=== PATIENT | female | born 1990 | race Hispanic/Latino ===

== ENCOUNTER 2017-03-10 03:28 | Inpatient (IN) | payer OTHER ==
[~2017-03-10] VITALS: Ht 160 cm; Wt 119.3 kg
[~2017-03-10 03:28] MED LIST: Ibuprofen PO
[2017-03-10] MEDS ORDERED: Lactated Ringer's 1,000 ML IV PRN (06:07)
[2017-03-10] MEDS ORDERED: Sodium Chloride LOK Flush 10 mL Syringe IVFLUSH PRN (06:10)
[2017-03-10] MEDS ORDERED: Oxytocin 30 Units/500 mL LR 30 UNITS in IV Premix 1 EACH IV PRN ×2 (06:10→09:15)
[2017-03-10] MEDS ORDERED: Oxytocin 10 Unit/mL Inj IM PRN ×2 (06:10→09:15)
[2017-03-10] MEDS ORDERED: Carboprost 250 mCg/mL Inj IM PRN ×2 (06:10→09:15)
[2017-03-10] MEDS ORDERED: Hemorrhage Kit, Post Partum XX ONE ×2 (06:10→09:15)
[2017-03-10] MEDS ORDERED: Methylergonovine 0.2 mg/mL Inj IM PRN ×2 (06:10→09:15)
[2017-03-10] MEDS ORDERED: Ondansetron 2 mg/mL 2 mL Inj IVPUSH PRN ×2 (06:10→06:30)
[2017-03-10] MEDS ORDERED: fentaNYL 2 mCg/mL-Bupivicaine 0.125% 100 mL Premix EPIDURAL ONE (06:12)
[2017-03-10 06:20] LABS: Mean Corpuscular Hemoglobin 28.6 pg (27.0-35.0); Mean Corpuscular Volume 86.9 fL (81-100)
--- NOTE | 2017-03-10 06:28 | PCM.HPANE ---
Patient Data Date of Service: Mar 10, 2017 (0612) Surgeon Admitting Provider:Mike Tabor MD Attending Provider:Mike Tabor MD Primary Care Physician:Hilda Mcgraw MD Other Provider:Fran Brownlee Anesthesia Reason for Visit TERM TERM Ht/WT & BMI Body Mass Index Allergies Coded Allergies: No Known Allergies (Verified , 12/15/06) Past Anesthesia History Anesthesia History: Denies:: Abnormal Airway, Anesthesia Reactions, Difficult Intubation, Fam Anesthesia Reaction, Fam Malignant Hypertherm, Malignant Hyperthermia Medications Active Scripts [Ibuprofen] (Motrin)800 MG TABLET No Conflict [id number] Mg PO Q6H PRN For Pain # 30 TABLET Ref 1 Prov:Giuseppe Stephenson MD 01/18/15 History History of ENT Problems?: No HEENT History: Denies:: Abnormal Airway Cataracts Difficult Intubation Dysphagia Glaucoma Hearing Problem Sinus Problem TMJ Denture Type: None Teeth Condition: Within Normal Limits Hx of Heart Problems?: No Cardiovascular History: Denies:: AICD Abdominal Aortic Aneurism Atrial Fibrillation Cardiac Surgery Chest Pain Congestive Heart Failure Coronary Artery Disease Edema Heart Murmur Hypertension Irregular Heartbeat Pacemaker Peripheral Vascular Rheumatic Fever Thrombophlebitis Valvular Heart Disease Hx of Respiratory Problem?: No Respiratory History: Denies:: Asthma COPD Chest Surgery Cough Dyspnea Emphysema Hemoptysis Oxygen Administration Pneumonia Pulmonary Embolism Tuberculosis Use of C-PAP Machine Use of Inhalers / NEBS Hx Neurologic Problems?: No Hx of GI Problems?: No Hx of Problems?: No Female Hx: Positive for:: Currently Hx Musculoskeletal Problems?: No Hx Surgeries?: Yes Smoking Status: Never Smoker Stop/Bang Risk Assessment Category Category 1A: Patient has history of documented sleep apnea, and HAS NOT received any narcotic, sedative or anesthesia administration during this stay. Category 1B: Patient has history of documented sleep apnea, and HAS received any narcotic , sedative or anesthesia administration during this stay Category 2: Patient has SUSPECTED Obstructive Sleep Apnea, and HAS received any narcotic , sedative or anesthesia administration during this stay. Category 3: Patient has SUSPECTED Obstructive Sleep Apnea and HAS NOT received narcotic, sedative or anesthesia administration during this stay. Category 4: Outpatient in Procedural Areas with known sleep apnea or who screen positive for High Risk via the STOP/BANG questionnaire. Exam Exam General Appearance: Alert, Oriented X3, Cooperative, No Acute Distress HEENT/AIRWAY: MP 2, Neck Movement (from) Lungs: Clear to Auscultation Heart: Exam Unremarkable Meds/Labs/Diagnostics Labs Test 03/10/17 04:16 Blood Urea Nitrogen 5mg/dL (6-20) Creatinine 0.36mg/dL (0.57-1.00) Uric Acid 4.3mg/dL (2.6-7.2) Aspartate Amino Transf (AST/SGOT) 19U/L (0-50) Alanine Aminotransferase (ALT/SGPT) 13U/L (0-32) Plan Impression Patient chart reviewed, patient interviewed and anesthestic plan with risks, benefits, and alternatives discussed, and informed consent obtained. ASA Physical Status: ASA3 Severe Disease Anesthetic Plan: Epidural Bene/Risks/Altern/Consents: Yes HP Complete Prior to Induction: Yes Andrea Hutchinson MD Mar 10, 2017 06:28
[2017-03-10] MEDS ORDERED: Lactated Ringer's 500 ML IV ONE (06:29)
[2017-03-10] MEDS ORDERED: Lactated Ringer's 1,000 ML IV SCH ×2 (06:29→09:11)
[2017-03-10] MEDS ORDERED: Atropine 1 mg/10 mL (Code) Syringe IVPUSH PRN (06:30)
[2017-03-10] MEDS ORDERED: EPHEDrine Sulfate 50 mg/mL Inj IVPUSH PRN (06:30)
[2017-03-10] MEDS ORDERED: fentaNYL 2 mCg/mL-Bupiv 0.125% 100 ML EPIDURAL SCH (06:30)
[2017-03-10] MEDS ORDERED: Penicillin G K Inj 5,000,000 UNITS in Dextrose 5% Minibag Plus 100 ML IV ONE (07:50)
[2017-03-10] MEDS ORDERED: Penicillin G K 5,000,000 Units Inj ONE (08:01)
[2017-03-10] MEDS ORDERED: 0.9% Sodium Chloride 100 ML ONE (08:02)
--- NOTE | 2017-03-10 08:19 | PCM.HPOB ---
Subjective Referring Provider: Admitting Physician: Mike Tabor MD Primary Care Physician: Hilda Mcgraw MD Attending Physician: Mike Tabor MD Chief Complaint "contractions" History of Present History of Present Illness Ms. Collazo is a 26 year old woman at 38 weeks 6 days gestation with BRIAN of 03/18/2017 based on 14 weeks ultrasound who presents to the [facility] with contractions. Her water has not broken yet. She does not have dizziness, lightheadedness, headache, blurred vision, or upper abdominal pain. She states that she was unable to follow up with care due to lack of transportation because she doesn't drive and depends on her significant other for rides. At the same time, her oldest 13 year old son also has been having issues. OB History: (8), Para (5), Term (5), Pre-term (0), ( 2), Living (5) Obstetrical Complications: Other (poor care) Past Medical History Obstetrical History: History of 2 spontaneous abortions History of 5 normal spontaneous vaginal deliveries She had one visit at 31 weeks gestation during this . Gynecologic History: History of prior chlamydia infection Pap smear done during only visit was negative and negative HPV, gonorrhea and chlamydia were negative Medical History: Denies other medical conditions Surgical History: Denies prior surgeries Hx Tobacco Use: No Hx Alcohol Use: No Hx Substance Use: No Past Family History Family History Denies family history of diabetes mellitus and hypertension Review of Systems Constitutional: Y: Chills, Dizziness, Fever Eyes: Denies: Blurred Vision Cardiovascular: Denies: Chest Pain Gastrointestinal: Denies: Epigastric pain Neurological: Denies: Dizziness Medications Home medications vitamin Allergy Coded Allergies: No Known Allergies (Verified , 12/15/06) Exam Vital Signs Blood pressure 127/67 after epidural Temperature 97.7 degrees F, heart rate 86 bpm Exam Baseline 150s bpm with variability and accelerations Constitutional: Well-developed, Well-nourished HEENT: Atraumatic, EOMI Lungs: Clear to Auscultation, Normal Air Movement Heart: Regular Rate/Rhythm, Normal S1, Normal S2, No Murmurs/Rubs/Gallops Abdomen: Gravid Extremities: Warm, No Edema Neurological/Psychiatric: Alert, Oriented X3, Cooperative, Mild Distress (due to active contractions) Neuro: Grossly Neurologically Intact, Normal Speech Labs/Diagnostics Labs Item Value Date Time White Blood Count 6.9 th/mm3 03/10/17415 Red Blood Count 3.81 mil/mm3 L 03/10/17415 Hemoglobin 10.9 g/dL L 03/10/17415 Hematocrit 33.1 % L 03/10/17415 Platelet Count 165 maria antonia/L 03/10/17415 Blood Urea Nitrogen 5 mg/dL L 03/10/17415 Creatinine 0.36 mg/dL L 03/10/17415 Uric Acid 4.3 mg/dL 03/10/17415 Aspartate Amino Transf (AST/SGOT) 19 U/L 03/10/17415 Alanine Aminotransferase (ALT/SGPT) 13 U/L 03/10/17415 Maternal Blood Type: A (positive) Antibody Screen: negative Group B Strep Results: Not done Rubella: Non-Immune Additional Information Pre- labs: blood type A positive, antibody screen negative, Pap smear negative with negative HPV, varicella non-immune, rubella non-immune, RPR non reactive, HBsAg negative, HIV non reactive, HgbA1c 5.3%, hepatitis C negative, TSH 1.010, chlamydia and gonorrhea negative GBS and 1 hour glucose tolerance test not performed OB Intrapartum Assessment/Plan Assessment 26 year old woman at 38 weeks 6 days gestation with BRIAN of 03/18/2017 based on 14 weeks ultrasound Poor care Rubella and varicella non-immune Intrapartum plan 26 year old woman at 38 weeks 6 days gestation with BRIAN of 03/18/2017 based on 14 weeks ultrasound - In active labor. Cervical exam showed 5-6 cm dilated, 90%, mid position, soft , -3; contractions every 2-6 minutes - AROM was performed at 07:33 AM - Epidural was given for pain management - GBS unknown so penicillin was started - Continue monitoring FHR and maternal BP and anticipate Poor care - Pt reports that this is due to transportation and family issues - UDS ordered Rubella and varicella non-immune - Will need vaccination post- Attending Statement The patient was seen and examined together with Ana Lanza DO on 07/2017 and I agree with the history, exam and plan as outlined in the note above. Ana Moore DO Mar 10, 2017 07:02 Antonina Hunter MD Mar 10, 2017 12:41
[2017-03-10] MEDS ORDERED: Sodium Chloride LOK Flush 10 mL Syringe IVFLUSH SCH (08:30)
[2017-03-10] MEDS ORDERED: Benzocaine (Dermoplast) 20% 60 Gm Spray TOPICAL PRN (09:15)
[2017-03-10] MEDS ORDERED: TdaP Vaccine 0.5 mL Inj IM ONE (09:15)
[2017-03-10] MEDS ORDERED: LANOlin HPA 7 Gm Ointment TOPICAL PRN (09:15)
[2017-03-10] MEDS ORDERED: Measles-Mumps-Rubella Vaccine 0.5 mL Inj SUBQ ONE (09:15)
[2017-03-10] MEDS ORDERED: Witch Hazel-Glycerin Pads TOPICAL PRN (09:15)
--- NOTE | 2017-03-10 09:20 | PCM.OBVAG ---
Vaginal Delivery Date of Service Mar 10, 2017 Pre Operative Diagnosis Pre Operative Diagnosis 26 year old woman at 38 weeks 6 days gestation with BRIAN of 03/18/2017 based on 14 weeks ultrasound Preeclampsia Poor care Rubella and varicella non-immune UDS positive for amphetamines Post Operative Diagnosis Post Operative Diagnosis 26 year old [id number] P6 woman at 38 weeks 6 days gestation with BRIAN of 2016 based on 14 weeks ultrasound status post normal spontaneous vaginal delivery Preeclampsia Poor care Rubella and varicella non-immune UDS positive for amphetamines Procedure Obstetical Procedure: Normal Spontaneous Vaginal Delivery Hand Buffer/Director Of Operations Home Health Provider and Director Of Operations Home Health: MD Ana Samuel DO, PGY-2 Indication for Procedure Induction: Active labor, AROM, Progressed normally through labor Findings Obstetrical Findings: [place] (Male), Cord (3 Vessel), 1 minute (8), 5 minutes (8), Placenta (Intact/Normal) Analgesia/Medications Obstetrical Anesthesia: Epidural Procedure Details Procedure Details Patient is a 26 year old woman at 38 weeks 6 days gestation with BRIAN of based on 14 weeks ultrasound who was admitted to the [facility] in active labor. She desired an epidural and one was placed. Her GBS status is unknown and 1 dose of penicillin prior to delivery was given. She made normal progress through labor and was found to be complete at about 08:43. Procedure: Patient had a precipitous delivery. Nuchal cord x1 was reduced. The infant was delivered at 08:44. The placenta then delivered spontaneously intact at 09:00 with a three vessel cord. Uterus firmed with manual external massage. The perineum was examined and there was a small perineal abrasion that was hemostatic and did not need repair. Sponge and instrument counts were correct at the close of the procedure. The patient and tolerated the procedure well and pt is stable in her room. weight not available at this time. Blood Loss & Administration Estimated Blood Loss: 200 Post Procedure Plan Post delivery Condition: Mom stable Attending Statement I was present for the entire procedure and agree with the above documentation without change. Ana Moore DO Mar 10, 2017 09:20 Antonina Hunter MD Mar 10, 2017 12:49
[2017-03-10] MEDS: HYDROcodone-APAP 5-325 mg Tablet PO PRN ×2 (10:49→19:57)
[2017-03-10] MEDS ORDERED: Penicillin G K Inj 3,000,000 UNITS in IV Premix 1 EACH IV SCH (12:30)
--- NOTE | 2017-03-10 14:12 | PCM.ANEP1 ---
Post Anesthesia PACU Phase 1 Assessment Date of Service: Mar 10, 2017 Vital Signs reviewed, see RN charting, stable hemodynamics and respirations Anesthetic Administered: Regional Block Level of Alertness: Awake, talking DUNBAR's with Equal Strength: Yes Pain: Yes Nausea or Vomiting: No CV Function & Hydration Stable: Yes Airway Device: Oxygen Delivery: Room Air Lungs: Normal Air Movement PACU Phase 2 Assessment Patient Instructions Provided: N/A Jack Mendoza MD Mar 10, 2017 14:12
[2017-03-10] MEDS ORDERED: Ascorbic Acid 500 mg Tablet PO SCH (17:30)
[2017-03-10] MEDS ORDERED: FERR-83 PO (22:52)
[2017-03-10] MEDS ORDERED: IBUP800T28 PO (22:52)
[2017-03-10] MEDS ORDERED: ASCO-294 PO (22:52)
[2017-03-10] MEDS ORDERED: DOCU-41 PO (22:52)
[2017-03-11] MEDS: HYDROcodone-APAP 5-325 mg Tablet PO PRN (04:04)
[2017-03-11 06:37] LABS: Mean Corpuscular Hemoglobin 28.7 pg (27.0-35.0); Mean Corpuscular Volume 88.2 fL (81-100)
--- NOTE | 2017-03-11 07:03 | PCM.DIOB ---
Obstetrical Disch Instruction Dates of Hospitalization Date of Hospital Admission Mar 10, 2017 at 05:55 Providers Admitting Physician: Mike Tabor MD Primary Care Physician: Hilda Mcgraw MD Attending Physician: Mike Tabor MD Discharge Diagnosis Discharge Diagnosis You had a baby. Problems: Diet Discharge Diet: No restrictions Activity Discharge Activity-General: Pelvic Rest for 6 weeks, Balance rest and activity , Activity as pain allows, Activity as energy allows, No lifting >15 pounds for 2 weeks, No lifting >10 pounds for 4-6 weeks Dressing and Incisional Care Hygiene: May shower, NO bathtub, hot tub or whirlpool, Perineal care, Sitz bath Additional Instructions Discharge Instructions Continue your vitamin. Please take the iron and vitamin c together for your anemia. Iron can give you constipation so you have also been given a prescription for docusate to keep you regular. Be sure to follow up in 1 week for a blood pressure check and then again in [facility] weeks at [facility]. At your 6 weeks visit, you can discuss control such as an IUD or the Nexplanon, the IUD offers up to 5 years of control and the Nexplanon up to 3 years of control. Pelvic rest for 6 weeks (nothing per vagina including intercourse, tampons) If you have a fever greater than 100.4, please call [facility]. There is always someone coconut cooker to talk to. If you have an increase in bleeding, call [facility]. If you have a lot of bleeding suddenly, especially if you have symptoms of dizziness & weakness with it, get emergency help. If you need help with your recovery from substance use, please let us know. If you start experiencing extreme depression, especially if you feel that you are a danger to yourself or your family, seek emergency help. If you start to have a headache, blurred vision, worsening swelling in your hands and feet, or upper abdominal pain, please seek medical attention. You have been through a lot -- BE SURE TO TAKE CARE OF YOURSELF. You have been sent home with the following prescriptions: - Colace 100 mg twice a day as needed for constipation. - Ferrous sulfate 325 mg every day. - Vitamin C 500 mg every day. Take with iron. - Ibuprofen 800mg take 1 tab every 8 hours as needed for pain. Take with a meal. Follow-up in 1 week and 6 weeks with [facility]. Follow Up Plan Follow-up Provider (F9): Antonina Hunter MD Follow-up appointment: Weeks (1 and 6) Call your provider for: Fever or Chills, Shortness of breath, Heavy vaginal bleeding, Heavy bleeding, Epigastric pain, Excessive constipation, Vaginal discomfort, Red painful breasts, Other (painful swelling in one leg) Ana Moore DO Mar 10, 2017 22:54
--- NOTE | 2017-03-11 13:35 | NUR ---
Social Work Note D/A/P: Referral Received. SPRINKLING SYSTEM INSTALLER requested to assess Pt due to amphetamine positive UDS for both Pt and NB. SPRINKLING SYSTEM INSTALLER spoke with alteration hand Kim and it was agreed that SPRINKLING SYSTEM INSTALLER would meet with Pt in approximately 30-45 minutes. TYRELL Lewis, AAC
[2017-03-11 16:36] VITALS: BP 132/69; PULSE 85; RESP 18
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
--- NOTE | 2017-03-12 16:39 | PCM.DC.OB ---
Obstetrical Discharge Summary Date of Service Mar 12, 2017 Date of hospital admission Mar 10, 2017 at 05:55 Date of Discharge: Mar 11, 2017 Providers Admitting Physician: Mike Tabor MD Primary Care Physician: Hilda Mcgraw MD Attending Physician: Mike Tabor MD Diagnosis at Time of Discharge 26 year old now P6 woman at 38 weeks 6 days gestation with BRIAN of 2016 based on 14 weeks ultrasound status post normal spontaneous vaginal delivery on 03/10/17 Mild preeclampsia Poor care Rubella and varicella non-immune UDS positive for amphetamines Problems: Invasive procedures Normal spontaneous vaginal delivery Date of Procedure: Mar 10, 2017 Brief History and Physical: From the history and physical performed by Dr. Moore on 03/10/17: Ms. Collazo is a 26 year old woman at 38 weeks 6 days gestation with BRIAN of 03/18/2017 based on 14 weeks ultrasound who presents to the [facility] with contractions. Her water has not broken yet. She does not have dizziness, lightheadedness, headache, blurred vision, or upper abdominal pain. She states that she was unable to follow up with care due to lack of transportation because she doesn't drive and depends on her significant other for rides. At the same time, her oldest 13 year old son also has been having issues. Hospital Course: 26 year old now P6 woman at 38 weeks 6 days gestation with BRIAN of 2016 based on 14 weeks ultrasound status post normal spontaneous vaginal delivery on 03/10/17 - Patient had a precipitous delivery on 03/10/17. The perineum was examined and there was a small perineal abrasion that was hemostatic and did not need repair. She delivered a male with Apgars 8 and 8 at 08:44 on 03/10/17. - On day of discharge, she felt well. She did not have nausea, vomiting, chest pain, dyspnea, palpitations, or dysuria. On exam, her heart was a regular rate and rhythm with no murmurs, rubs, or gallops, lungs were clear to auscultation with no crackles, uterus was firm and no abdominal tenderness, and she had mild edema of bilateral hands and feet. Mild preeclampsia - Blood pressure was stable day of discharge. Her blood pressure was 132/69 at time of discharge. - She had swelling in her hands and feet. She did not have a headache, blurred vision, or upper abdominal pain. - Patient advised to schedule a follow up in 1 week for blood pressure check Poor care - She had one visit during Rubella and varicella non-immune - MMR vaccine given prior to discharge - Recommend varciella vaccine at post visit UDS positive for amphetamines - Social work saw patient and CPS involved - Encouraged substance cessation and continued recovery ([Ibuprofen]) 800 MG TABLET 800 MG PO Q6H PRN PRN For Pain Prescribed by: DISHA GORE MD Ascorbate Calcium (Vitamin C) 500 Mg Tablet 500 MG PO DAILY Prescribed by: ANA MOORE DO Docusate Sodium (Colace) 100 Mg Capsule 100 MG PO BID PRN PRN For Constipation Prescribed by: ANA MOORE DO Ferrous Sulfate (Ferrous Sulfate) 325 Mg Tablet 325 MG PO DAILY Prescribed by: ANA MOORE DO Ibuprofen (Ibuprofen) 800 Mg Tablet 800 MG PO TID PRN PRN For Pain Prescribed by: ANA MOORE DO Attending Statement: I saw patient and examined her. I agree with above evaluation and plan Ana Moore DO Mar 12, 2017 14:21 Ana Villalobos MD Mar 16, 2017 21:39
== END 2017-03-11 18:01 | disposition home or self-care (01) | DRG 775 ==
LOC: FBCO 03:28 → FBC 04:35 → UNDOADMIN 04:35 → FBC 05:55
PROVIDERS: ADMIT Obstetrics & Gynecology; ATTEND Obstetrics & Gynecology
PROC: 10E0XZZ Delivery of Products of Conception, External Approach (ICD-10-PCS; principal; 2017-03-10)
PROC: 10907ZC Drainage of Amniotic Fluid, Therapeutic from Products of Conception, Via Natural or Artificial Opening (ICD-10-PCS; 2017-03-10)
PROC: 3E0234Z Introduction of Serum, Toxoid and Vaccine into Muscle, Percutaneous Approach (ICD-10-PCS; 2017-03-10)
DX: O62.3 Precipitate labor (principal); O14.04 Mild to moderate pre-eclampsia, complicating childbirth; O99.324 Drug use complicating childbirth; O69.81X0 Labor and delivery complicated by cord around neck, without compression, not applicable or unspecified; O99.02 Anemia complicating childbirth; F15.90 Other stimulant use, unspecified, uncomplicated; Z23 Encounter for immunization; Z3A.38 38 weeks gestation of pregnancy; Z37.0 Single live birth